=== PATIENT | female | born 1970 | race Caucasian/White ===

== ENCOUNTER 2018-04-15 15:39 | Emergency (ER) | payer MEDICARE, OTHER ==
[~2018-04-15] VITALS: Ht 170.2 cm; Wt 69.4 kg
[2018-04-15 15:39] VITALS: BP 151/97
[2018-04-15] MEDS ORDERED: NAPROXEN 250 MG TABLET ONE (16:23)
[2018-04-15] MEDS ORDERED: NAPROXEN 500 MG TABLET PO ONE (16:30)
== END 2018-04-15 17:52 | disposition home or self-care (01) ==
LOC: ER 15:44
DX: S80.02XA Contusion of left knee, initial encounter (principal); F41.9 Anxiety disorder, unspecified; M54.9 Dorsalgia, unspecified; F32.9 Major depressive disorder, single episode, unspecified; Z98.890 Other specified postprocedural states; Z88.5 Allergy status to narcotic agent; W22.8XXA Striking against or struck by other objects, initial encounter; Y93.89 Activity, other specified; Y92.89 Other specified places as the place of occurrence of the external cause; Y99.8 Other external cause status
CPT/HCPCS: 29505; 73564; 99283; A4606

== ENCOUNTER 2019-05-19 23:38 | Emergency (ER) | payer MEDICARE, OTHER ==
[~2019-05-19] VITALS: Ht 170.2 cm; Wt 71.2 kg
[2019-05-19 23:40] VITALS: BP 131/74
--- NOTE | 2019-05-19 23:40 | NUR ---
PT BIBSELF C/O "CONSTANT SEVERE LOW BACK PAIN WITH NAUSEA SINCE YESTERDAY". PT AOX4. NAD NOTED. RESP EVEN AND UNLABORED. PT AMBULATORY. PT ABLE TO PROVIDE URINE AT THIS TIME. PT ON MONITOR WITH FAMILY AT BEDSIDE. WILL CONTINUE TO MONITOR.
--- NOTE | 2019-05-20 00:23 | NUR ---
BLOOD DRAWN AND GIVEN TO PHLEB
[2019-05-20 00:24] LABS: BASOPHILS % (AUTO) 0.5 % (0.0-2.0); EOSINOPHILS % (AUTO) 0.9 % (0.0-6.0); HEMATOCRIT 43 % (33-45); HEMOGLOBIN 14.3 g/dL (11.5-14.8); LYMPHOCYTES # (AUTO) 2.2 /CMM (0.8-4.8); MEAN CORPUSCULAR HGB CONC 34 g/dl (31.0-36.0); MEAN CORPUSCULAR VOLUME 90 fL (82-100); MONOCYTES # (AUTO) 0.6 /CMM (0.1-1.30); MONOCYTES % (AUTO) 8.3 % (2.0-12.0); NEUTROPHILS % (AUTO) 58.3 % (43.0-81.0); PLATELET COUNT (AUTO) 203 /CMM (150-450); RED BLOOD CELL COUNT(AUTO) 4.74 MIL/uL (4.0-5.2); WHITE BLOOD COUNT (AUTO) 6.9 K/uL (4.3-11.0)
[2019-05-20] MEDS ORDERED: IV NS 0.9% 500 ML BAG IV ONE (00:30)
[2019-05-20 00:33] LABS: CALCIUM, SERUM 8.9 mg/dL (8.5-10.1); POTASSIUM 3.6 mmol/L (3.5-5.1)
[2019-05-20 00:56] LABS: APPEARANCE,URINE Clear (CLEAR); BILIRUBIN,URINE Negative (NEGATIVE); BLOOD, URINE Trace-intact Ery/uL (NEGATIVE); COLOR,URINE Light yellow (YELLOW); KETONES,URINE Negative (NEGATIVE); LEUKOCYTE ESTERASE ,URINE Negative (NEGATIVE); NITRITE, URINE Negative (NEGATIVE); PROTEIN,URINE Negative (NEGATIVE); UGLUCOSE Negative (NEGATIVE); UROBILINOGEN,URINE 0.2 EU/dL (0.2)
[2019-05-20 01:43] LABS: BACTERIA,URINE Few /HPF (None Seen); SQUAMOUS EPITHELIAL CELL,UR Few /HPF (None Seen); WBC,URINE 0-2 /HPF (0-3)
--- NOTE | 2019-05-20 02:02 | NUR ---
IV removed. Catheter intact and site benign. Pressure and 4x4 applied to site. No bleeding noted.Patient discharged to home in stable condition. Written and verbal after care instructions given. Patient verbalizes understanding of instruction.
== END 2019-05-20 02:02 | disposition home or self-care (01) ==
LOC: ER 23:38
DX: R10.84 Generalized abdominal pain (principal); F32.9 Major depressive disorder, single episode, unspecified; Z98.890 Other specified postprocedural states; Z88.6 Allergy status to analgesic agent
CPT/HCPCS: 36415; 80048; 81001; 85025; 87086; 99283; J7040; 81000-TC

== ENCOUNTER 2023-03-23 15:50 | Emergency (ER) | payer MEDICARE, OTHER ==
[~2023-03-23] VITALS: Ht 170.2 cm; Wt 62.6 kg
[2023-03-23] MEDS ORDERED: KETOROLAC TROMETHAMINE 15 MG/ML VIAL IV ONE (16:30)
[2023-03-23] MEDS ORDERED: KETOROLAC TROMETHAMINE 15 MG/ML VIAL ONE (16:36)
[2023-03-23 16:38] LABS: BASOPHILS % (AUTO) 0.3 % (0.0-2.0); EOSINOPHILS # (AUTO) 0.1 K/uL (0.0-0.7); EOSINOPHILS % (AUTO) 0.7 % (0.0-6.0); HEMATOCRIT 42 % (33-45); HEMOGLOBIN 13.9 g/dL (11.5-14.8); LYMPHOCYTES % (AUTO) 26.7 % (20.0-44.0); MEAN CORPUSCULAR HEMOGLOBIN 30 PG (26.0-33.0); MEAN CORPUSCULAR HGB CONC 33 g/dl (31.0-36.0); MEAN CORPUSCULAR VOLUME 89 fL (82-100); MONOCYTES # (AUTO) 0.6 K/uL (0.1-1.30); MONOCYTES % (AUTO) 8.4 % (2.0-12.0); NEUTROPHILS # (AUTO) 4.8 K/uL (1.8-8.9); NEUTROPHILS % (AUTO) 63.9 % (43.0-81.0); PLATELET COUNT (AUTO) 197 K/uL (150-450); RED BLOOD CELL COUNT(AUTO) 4.69 MIL/uL (4.0-5.2); RED CELL DISTRIBUTION WIDTH 13.6 % (11.5-15.0); WHITE BLOOD COUNT (AUTO) 7.5 K/uL (4.3-11.0)
[2023-03-23 16:51] LABS: APPEARANCE,URINE SLIGHTLY CLOUDY (CLEAR); BILIRUBIN,URINE NEGATIVE (NEGATIVE); BLOOD, URINE NEGATIVE Ery/uL (NEGATIVE); COLOR,URINE YELLOW (YELLOW); KETONES,URINE TRACE mg/dL (NEGATIVE); LEUKOCYTE ESTERASE ,URINE NEGATIVE (NEGATIVE); NITRITE, URINE NEGATIVE (NEGATIVE); PH,URINE 5.5 (5.0-8.0); PROTEIN,URINE NEGATIVE (NEGATIVE); UGLUCOSE NEGATIVE (NEGATIVE); UROBILINOGEN,URINE 0.2 EU/dL (0.2)
[2023-03-23 16:57] LABS: CALCIUM, SERUM 8.9 mg/dL (8.5-10.1); CREATININE 0.7 mg/dL (0.6-1.3); POTASSIUM 3.5 mmol/L (3.5-5.1)
[2023-03-23 17:15] LABS: RBC,URINE NONE SEEN /HPF (0-2); WBC,URINE NONE SEEN /HPF (0-3)
[2023-03-23 17:16] LABS: ADD URINE CULTURE NO; BACTERIA,URINE Rare /HPF (None Seen); SQUAMOUS EPITHELIAL CELL,UR 21-50 /HPF (None Seen)
[2023-03-23 17:17] LABS: ALBUMIN 3.4 g/dL (3.4-5.0); BILIRUBIN,TOTAL 0.4 mg/dL (0.2-1.0); TOTAL PROTEIN, SERUM 7.3 g/dL (6.4-8.2)
[2023-03-23 17:31] LABS: BILIRUBIN,DIRECT 0.1 mg/dL (0.0-0.2)
[2023-03-23 18:54] VITALS: BP 121/66; TEMP 98.8; O2SAT 100
== END 2023-03-23 18:55 | disposition home or self-care (01) ==
LOC: ER 16:16
DX: M54.9 Dorsalgia, unspecified (principal); F32.A Depression, unspecified; Z98.890 Other specified postprocedural states; Z88.5 Allergy status to narcotic agent
CPT/HCPCS: 99285; 74176; 96374; 85025; 80048; 87086; 80076; 81001; 36415; J1885

== ENCOUNTER 2023-06-23 17:28 | Inpatient (IN) | payer MEDICARE, OTHER ==
[~2023-06-23] VITALS: Ht 170.2 cm; Wt 67.6 kg
[2023-06-23] MEDS ORDERED: HYDROMORPHONE 1 MG/1 ML DISP.SYRIN ONE ×2 (18:05→20:19)
[2023-06-23] MEDS ORDERED: ONDANSETRON 4 MG TAB.RAPDIS ONE (18:06)
[2023-06-23] MEDS: ONDANSETRON 4 MG TAB.RAPDIS SL ONE (18:12)
[2023-06-23] MEDS: HYDROMORPHONE 1 MG/1 ML DISP.SYRIN IM ONE (18:13)
[2023-06-23] MEDS ORDERED: HYDR-3980 PO (19:32)
[2023-06-23] MEDS ORDERED: HYDROCODONE/APAP 10/325MG TABLET PO PRN (20:00)
[2023-06-23] MEDS ORDERED: MAGNESIUM HYDROXIDE 30 ML UDC PO PRN (20:00)
[2023-06-23] MEDS ORDERED: ONDANSETRON HCL/PF 4 MG/2 ML VIAL IVP PRN (20:00)
[2023-06-23] MEDS ORDERED: ACETAMINOPHEN 325 MG TABLET PO PRN (20:00)
[2023-06-23] MEDS ORDERED: Z GUARD REMEDY 4 OZ OINT TP PRN (20:00)
[2023-06-23] MEDS: IV NS 0.9% 1,000 ML BAG IV ONE (20:04)
[2023-06-23 20:08] LABS: BASOPHILS # (AUTO) 0.1 K/uL (0.0-0.2); BASOPHILS % (AUTO) 0.6 % (0.0-2.0); EOSINOPHILS # (AUTO) 0.1 K/uL (0.0-0.7); HEMATOCRIT 43 % (33-45); HEMOGLOBIN 14.1 g/dL (11.5-14.8); LYMPHOCYTES # (AUTO) 1.7 K/uL (0.8-4.8); LYMPHOCYTES % (AUTO) 19.1 % (20.0-44.0); MEAN CORPUSCULAR HEMOGLOBIN 30 PG (26.0-33.0); MEAN CORPUSCULAR HGB CONC 33 g/dl (31.0-36.0); MEAN CORPUSCULAR VOLUME 90 fL (82-100); MONOCYTES # (AUTO) 0.4 K/uL (0.1-1.30); MONOCYTES % (AUTO) 5.1 % (2.0-12.0); NEUTROPHILS # (AUTO) 6.5 K/uL (1.8-8.9); NEUTROPHILS % (AUTO) 74.2 % (43.0-81.0); PLATELET COUNT (AUTO) 206 K/uL (150-450); RED BLOOD CELL COUNT(AUTO) 4.76 MIL/uL (4.0-5.2); RED CELL DISTRIBUTION WIDTH 13.8 % (11.5-15.0); WHITE BLOOD COUNT (AUTO) 8.8 K/uL (4.3-11.0)
[2023-06-23 20:14] LABS: CALCIUM, SERUM 8.3 mg/dL (8.5-10.1); CREATININE 0.6 mg/dL (0.6-1.3); POTASSIUM 3.7 mmol/L (3.5-5.1)
[2023-06-23] MEDS: HYDROMORPHONE 1 MG/1 ML DISP.SYRIN IV PRN (20:24)
[2023-06-23 21:30] VITALS: BP 115/63; TEMP 97.7; O2SAT 100
[2023-06-23] MEDS: IV NS 0.9% 1,000 ML IV PRN (21:58)
[2023-06-23] MEDS: LIDOCAINE 5% (PATCH) 1 EA PATCH TP SCH (22:27)
[2023-06-24 07:30] LABS: BASOPHILS % (AUTO) 0.4 % (0.0-2.0); EOSINOPHILS # (AUTO) 0.1 K/uL (0.0-0.7); EOSINOPHILS % (AUTO) 0.8 % (0.0-6.0); HEMATOCRIT 37 % (33-45); HEMOGLOBIN 12.5 g/dL (11.5-14.8); LYMPHOCYTES # (AUTO) 2.1 K/uL (0.8-4.8); LYMPHOCYTES % (AUTO) 30.7 % (20.0-44.0); MEAN CORPUSCULAR HEMOGLOBIN 31 PG (26.0-33.0); MEAN CORPUSCULAR HGB CONC 34 g/dl (31.0-36.0); MEAN CORPUSCULAR VOLUME 90 fL (82-100); MONOCYTES # (AUTO) 0.5 K/uL (0.1-1.30); MONOCYTES % (AUTO) 7.7 % (2.0-12.0); NEUTROPHILS # (AUTO) 4.2 K/uL (1.8-8.9); NEUTROPHILS % (AUTO) 60.4 % (43.0-81.0); PLATELET COUNT (AUTO) 177 K/uL (150-450); RED BLOOD CELL COUNT(AUTO) 4.04 MIL/uL (4.0-5.2); RED CELL DISTRIBUTION WIDTH 13.7 % (11.5-15.0)
[2023-06-24 07:51] LABS: CALCIUM, SERUM 7.5 mg/dL (8.5-10.1); CREATININE 0.6 mg/dL (0.6-1.3); MAGNESIUM 2.2 mg/dL (1.8-2.4); PHOSPHORUS 2.8 mg/dL (2.5-4.9); POTASSIUM 3.7 mmol/L (3.5-5.1)
[2023-06-24 08:00] VITALS: BP 108/65; TEMP 98.8; O2SAT 96
[2023-06-24] MEDS ORDERED: FLUO20CA36 PO (08:39)
[2023-06-24] MEDS ORDERED: PROP20TA7 PO (08:39)
[2023-06-24] MEDS: HYDROCODONE/APAP 10/325MG TABLET PO SCH (11:39)
[2023-06-24 16:00] VITALS: BP 96/72; TEMP 98.2; O2SAT 96
[2023-06-24] MEDS: DOCUSATE SODIUM 250 MG CAPSULE PO SCH (17:18)
[2023-06-24 22:17] VITALS: BP 91/61; TEMP 98.4; O2SAT 100
[2023-06-25] MEDS: HYDROMORPHONE INJ 2 MG/ML DISP.SYRIN IV PRN (01:46)
[2023-06-25] MEDS: MAGNESIUM HYDROXIDE 30 ML UDC PO PRN (01:51)
[2023-06-25 08:00] VITALS: BP 97/60; TEMP 98.2; O2SAT 96
[2023-06-25] MEDS: MAG HYDROX/AL HYDROX/SIMETH 30 ML UDC PO PRN (10:14)
[2023-06-25 16:00] VITALS: BP 102/70; TEMP 97.6; O2SAT 99
[2023-06-25 20:00] VITALS: BP 121/68; TEMP 97.8; O2SAT 98
[2023-06-25] MEDS: BISACODYL SUPP (10 MG) 10 MG/SUPP.RECT SUPP.RECT RC PRN (20:32)
[2023-06-26] MEDS: ZOLPIDEM TARTRATE 5 MG TABLET PO PRN (00:11)
[2023-06-26 08:16] VITALS: BP 107/75; TEMP 97.7; O2SAT 96
[2023-06-26] MEDS ORDERED: MAGN400O6 PO (09:48)
[2023-06-26] MEDS ORDERED: LIDO30AD10 TP (09:48)
[2023-06-26] MEDS ORDERED: BISA10SU61 RC (09:48)
[2023-06-26] MEDS ORDERED: DOCU250C14 PO (09:48)
[2023-06-26] MEDS ORDERED: LACT10SO3 PO (09:48)
[2023-06-26] MEDS ORDERED: HYDR-3980 PO (09:48)
[2023-06-26] MEDS: FLUOXETINE HCL 20 MG CAPSULE PO SCH (10:23)
== END 2023-06-26 13:16 | DRG 185 ==
LOC: ER 17:34 → MED 20:35
PROVIDERS: ADMIT Nurse Practitioner Acute Care; ATTEND Internal Medicine
DX: S22.41XA Multiple fractures of ribs, right side, initial encounter for closed fracture (principal); Y92.9 Unspecified place or not applicable; E83.51 Hypocalcemia; S62.91XA Unspecified fracture of right hand, initial encounter for closed fracture; W01.0XXA Fall on same level from slipping, tripping and stumbling without subsequent striking against object, initial encounter; M54.9 Dorsalgia, unspecified; F32.A Depression, unspecified; Z98.890 Other specified postprocedural states; Z88.5 Allergy status to narcotic agent
CPT/HCPCS: 36415; 71045-TC; 71250-TC; 80048-TC; 83735-TC; 84100-TC; 85025-TC; 97110-TC; 97116-TC; 97530-TC; A4223; G0378; J1170; J2405; J7030; Q0162